=== PATIENT | male | born 1955 | race Caucasian/White ===

== ENCOUNTER 2021-10-11 17:30 | Emergency (ER) | payer MEDICARE ==
[~2021-10-11] VITALS: Ht 182.9 cm; Wt 171.8 kg
[2021-10-11 17:57] LABS: HEMATOCRIT 43.2 % (42.0-52.0); HEMOGLOBIN 14.3 g/dl (13.5-18.0); MEAN CELL VOLUME 92 fl (80.0-100.0); MEAN CORPUSCULAR HEMOGLOBIN 31 pg (27-31); MEAN CORPUSCULAR HGB CONC 33 g/dl (33.0-37.0); MEAN PLATELET VOLUME 10.7 fl (7.4-10.4); PLATELET COUNT 328 K/mm3 (130-400); RED BLOOD COUNT 4.69 M/mm3 (4.20-5.60); REDCELL DISTRIBUTION WIDTH-CV 12.8 % (11.5-14.5)
[2021-10-11 18:00] VITALS: TEMP 98.2
[2021-10-11 18:11] LABS: ALBUMIN 2.8 gm/dL (3.4-4.8); BILIRUBIN,TOTAL 1.6 mg/dL (0.2-1.2); CALCIUM 9.8 mg/dL (8.4-10.2); CREATININE, serum 4.31 mg/dL (0.72-1.25); TOTAL PROTEIN 7.4 gm/dL (6.2-8.1)
[2021-10-11 18:27] LABS: BAND 22 % (0-10); LYMPHOCYTE 2 % (20.0-51.0); METAMYELOCYTE 1 % (0-0); NEUTROPHILS 71 % (42.0-75.2); PLATELET ESTIMATE NORMAL (NORMAL)
[2021-10-11 22:05] VITALS: BP 110/49; PULSE 86
== END 2021-10-11 22:05 | disposition short-term general hospital (02) ==
LOC: COL.ER 17:30
PROVIDERS: Family Medicine
DX: A41.9 Sepsis, unspecified organism (principal); I95.9 Hypotension, unspecified; N17.9 Acute kidney failure, unspecified; K42.0 Umbilical hernia with obstruction, without gangrene; E66.9 Obesity, unspecified; R61 Generalized hyperhidrosis; Z87.891 Personal history of nicotine dependence; Z20.822 Contact with and (suspected) exposure to COVID-19
CPT/HCPCS: J2543; J7030

== ENCOUNTER 2023-06-01 04:41 | Inpatient (IN) | payer MEDICARE ==
[2023-06-01] VITALS (589 sets, daily range): BP systolic 82–161; BP diastolic 42–86; PULSE 63–120; TEMP 97.6–98.5; O2SAT 80–100
[~2023-06-01] VITALS: Ht 182.9 cm; Wt 145.0 kg
[2023-06-01 05:54] LABS: BASO # 0.1 K/mm3 (0.0-0.2); BASO % 0.3 % (0.0-2.0); EOS % 0.1 % (0.0-4.0); GRAN # 15.2 K/mm3 (1.4-6.5); GRAN % 88.4 % (42.2-75.2); HEMOGLOBIN 12.4 g/dl (13.5-18.0); LYMPH # 0.8 K/mm3 (1.2-3.4); LYMPH % 4.7 % (20.0-51.0); MEAN CELL VOLUME 92 fl (80.0-100.0); MEAN CORPUSCULAR HEMOGLOBIN 31 pg (27-31); MEAN CORPUSCULAR HGB CONC 34 g/dl (33.0-37.0); MEAN PLATELET VOLUME 10.7 fl (7.4-10.4); MONO % 5.9 % (1.7-9.3); PLATELET COUNT 380 K/mm3 (130-400); RED BLOOD COUNT 4.02 M/mm3 (4.20-5.60); REDCELL DISTRIBUTION WIDTH-CV 13.2 % (11.5-14.5)
[2023-06-01 06:14] LABS: ALBUMIN 3.6 gm/dL (3.4-4.8); BILIRUBIN,TOTAL 0.4 mg/dL (0.2-1.2); CALCIUM 10.5 mg/dL (8.4-10.2); CREATININE, serum 4.84 mg/dL (0.72-1.25); TOTAL PROTEIN 7.7 gm/dL (6.2-8.1)
[2023-06-01 06:20] LABS: POTASSIUM 2.6 mmol/L (3.5-4.5)
[2023-06-01 06:22] LABS: TROPONIN-I 0.107 ng/mL (0.00-0.033)
--- NOTE | 2023-06-01 15:53 | NUR ---
Chaplain jean for Patient.
--- NOTE | 2023-06-01 16:01 | NUR ---
1145 PT TO ICU FROM PACU S/P PERFORATED DUODENAL ULCER REPAIR. PT ON VENT UPON ARRIVAL, 8.[address] MEASURING 27CM AT TEETH AND OG TUBE IN PLACE MEASURING 45CM AT LIP. BESS CATHETER IN PLACE TO DEPENDENT DRAINAGE. THREE LAP SITES TO ABD GLUED, EDGES WELL APPROXIMATED. SAHIL DRAIN SITE TO R SIDE OF ABD WNL, DRESSING CDI. LARGE DRIED SCABS NOTED TO L CALF AND ALVAR[place]O, NO DRAINAGE PRESENT. 1300 PHONE CALL MADE TO SON TO OBTAIN INTAKE INFO. PER PT'S SON HE DOES NOT KNOW PT'S MEDICAL INFORMATION AND IS UNSURE IF PT HAS ADVANCED DIRECTIVE. SON STATES PT LIVES W/ YOUNGER DAUGHTER AND THAT SHE ALSO DOES NOT KNOW HIS MEDICAL INFORMATION.
[2023-06-01 16:34] LABS: ARTERIAL BLD GAS O2 SATURATION 97.9 % (92-100); ARTERIAL BLOOD GAS BASE EXCESS -4.4 (-2-2); ARTERIAL BLOOD GAS HCO3 19.2 meq/L (22-26); ARTERIAL BLOOD GAS PCO2 29.2 mmHg (35-45); ARTERIAL BLOOD GAS PO2 96.4 mmHg (80-100); ARTERIAL BLOOD GAS pH 7.44 (7.35-7.45)
[2023-06-01 16:35] LABS: ARTERIAL BLD GAS TCO2 CT 20.1
[2023-06-02] VITALS (1143 sets, daily range): BP systolic 82–122; BP diastolic 38–59; PULSE 56–92; TEMP 97.9–99.7; O2SAT 47–100
--- NOTE | 2023-06-02 05:17 | NUR ---
AROUND 0200 AN ATTEMPT TO DECREASE BOTH FENTANYL AND PROPOFOL DOWN BY ONE TITRATION EACH WAS COMPLETED. AFTER THIS TITRATION, PT STARTED TO BECOME AGITATED AND STARTED TO REACH FOR THE ET TUBE, AND FIGHTING THE VENT. AN INCREASE BACK TO THE STARTING RATES WERE DONE, PT CALMED DOWN AND COULD FOLLOW COMMANDS AT THESE RATES. SEDATION VACATION INNAPROPRIATE AT THIS TIME DUE TO THOSE REASONS. VITALS WNL, PLAN OF CARE ONGOING.
[2023-06-02 05:40] LABS: BASO % 0.1 % (0.0-2.0); EOS % 0.2 % (0.0-4.0); GRAN # 10.7 K/mm3 (1.4-6.5); GRAN % 87.1 % (42.2-75.2); HEMOGLOBIN 10.6 g/dl (13.5-18.0); LYMPH # 0.7 K/mm3 (1.2-3.4); LYMPH % 5.6 % (20.0-51.0); MEAN CELL VOLUME 90 fl (80.0-100.0); MEAN CORPUSCULAR HEMOGLOBIN 31 pg (27-31); MEAN CORPUSCULAR HGB CONC 34 g/dl (33.0-37.0); MEAN PLATELET VOLUME 10.2 fl (7.4-10.4); MONO # 0.8 K/mm3 (0.1-0.6); MONO % 6.6 % (1.7-9.3); RED BLOOD COUNT 3.44 M/mm3 (4.20-5.60); REDCELL DISTRIBUTION WIDTH-CV 13.7 % (11.5-14.5)
[2023-06-02 05:47] LABS: HEMATOCRIT 30.9 % (42.0-52.0); PLATELET COUNT 254 K/mm3 (130-400)
[2023-06-02 05:47] LABS: ARTERIAL BLD GAS O2 SATURATION 97.1 % (92-100); ARTERIAL BLOOD GAS BASE EXCESS -3.5 (-2-2); ARTERIAL BLOOD GAS HCO3 20.1 meq/L (22-26); ARTERIAL BLOOD GAS PO2 93.7 mmHg (80-100); ARTERIAL BLOOD GAS pH 7.43 (7.35-7.45)
[2023-06-02 06:07] LABS: CALCIUM 8.7 mg/dL (8.4-10.2); CREATININE, serum 3.05 mg/dL (0.72-1.25); MAGNESIUM 1.6 mg/dL (1.6-2.6)
[2023-06-02 06:09] LABS: POTASSIUM 2.8 mmol/L (3.5-4.5)
--- NOTE | 2023-06-02 09:13 | NUR ---
RECEIVED BEDSIDE REPORT FROM NIGHTSKSFT RNFRANCIS. PATIENT REMAINS INTUBATED AND SEDATED AT THIS TIME. TWO SOFT WRIST RESTRAINTS IN PLACE. BED IN A LOW POSITION. MEDICATIONS, LABS, AND ORDERS REVIEWED AND ACKNOWLEDGED.
--- NOTE | 2023-06-02 09:20 | NUR ---
HEAD TO TOE ASSESSMENT COMPLETED. PATIENT OPENS EYES AND WITHDRAWLS FROM PAINFUL STIMULI. PUPILS ARE EQUAL AND REACTIVE. HEART SOUNDS REGULAR WITH S1 AND S2 NOTED. LUNG SOUNDS ARE DIMINISHED ALL OVER. BOWEL SOUNDS ACTIVE X4. PATIENT HAS SAHIL DRAIN FROM SURGERY PRODUCING SEROSANGUOUS FLUID. BESS IN PLACE. PATIENT REMAINS INTUBATED AND SEDATED WITH [address] PL[address] BED IN A LOW POSITION.
[2023-06-02 15:34] LABS: MAGNESIUM 2.7 mg/dL (1.6-2.6)
--- NOTE | 2023-06-02 17:42 | NUR ---
PATIENT VERY RESTLESS AND PULLING AT RESTRAINTS WITH CURRENT AMOUNT OF SEDATION. SEDATION NOT CUT IN HALF D/T CONCERN PATIENT WILL SELF EXTUBATE
--- NOTE | 2023-06-02 19:45 | NUR ---
Received report from day shift nurse, Ngoc. Pt is intubated and lying in bed. Pt is on levophed, LR, prop, and fent. Pt has an OG that is on LIS at this time. Pt has a multani in place with no kinks. Pt has a SAHIL drain in his abd and some drainage, but the dressing is clean, dry, and intact. Pt's 3 lap sites on the abd are open to air and clean, dry and intact. Pt's vitals are stable at this time.
[2023-06-03] VITALS (803 sets, daily range): BP systolic 100–147; BP diastolic 47–93; PULSE 80–125; TEMP 97.4–100.3; O2SAT 48–100
[2023-06-03 05:55] LABS: BASO # 0.1 K/mm3 (0.0-0.2); BASO % 0.4 % (0.0-2.0); EOS # 0.1 K/mm3 (0.0-0.7); GRAN # 9.5 K/mm3 (1.4-6.5); GRAN % 84.6 % (42.2-75.2); HEMOGLOBIN 10.1 g/dl (13.5-18.0); LYMPH # 0.7 K/mm3 (1.2-3.4); LYMPH % 6.3 % (20.0-51.0); MEAN CELL VOLUME 92 fl (80.0-100.0); MEAN CORPUSCULAR HEMOGLOBIN 31 pg (27-31); MEAN CORPUSCULAR HGB CONC 33 g/dl (33.0-37.0); MEAN PLATELET VOLUME 10.5 fl (7.4-10.4); MONO # 0.8 K/mm3 (0.1-0.6); MONO % 6.8 % (1.7-9.3); PLATELET COUNT 232 K/mm3 (130-400); REDCELL DISTRIBUTION WIDTH-CV 14.1 % (11.5-14.5)
[2023-06-03 06:07] LABS: HEMATOCRIT 30.2 % (42.0-52.0)
[2023-06-03 06:11] LABS: CREATININE, serum 2.17 mg/dL (0.72-1.25); MAGNESIUM 2.2 mg/dL (1.6-2.6); POTASSIUM 3.1 mmol/L (3.5-4.5)
--- NOTE | 2023-06-03 06:39 | NUR ---
Weaning sedation down per day shift nurse verbal order from Dr. Sánchez.
--- NOTE | 2023-06-03 07:30 | NUR ---
Pt had an uneventful night. Pt on levophed most of the night to help keep the BP stable. Leovophed was put on standby at 0548 this morning. Pt on fentanyl and propofol. Pt was hard to wean off at 0500. Pt would not follow commands and was restless in the bed and trying to sit up. Pt was moving their legs reslessly in the bed and moving their bottom in the bed. Pt was stacking their breaths on the vent. The pt's Tital volume would sometimes reach to 1500 range on the vent. Pt's HR started to go to 120's and pt was shaking in the bed. That is why the pt was left on some sedation during shift change this morning. Around 0300 the pt was alarming the vent constantly and his tital volume was getting to 1,100 range so the fentanyl was increased to hopefully help with the pain in the abd from the surgery. Pt had adequate urine output. Pt had 75 ml from the SAHIL drain. The SAHIL dressing was clean, dry and intact. Pt's 3 lap sites are open to air and clean, dry and intact. Pt's OG was on LIS the whole night with some green drainage. Gave report to day shift nurse.
[2023-06-03 09:46] LABS: ARTERIAL BLD GAS O2 SATURATION 96.7 % (92-100); ARTERIAL BLD GAS TCO2 CT 22.9; ARTERIAL BLOOD GAS BASE EXCESS -1.8 (-2-2); ARTERIAL BLOOD GAS HCO3 21.9 meq/L (22-26); ARTERIAL BLOOD GAS PCO2 33.3 mmHg (35-45); ARTERIAL BLOOD GAS PO2 83.4 mmHg (80-100); ARTERIAL BLOOD GAS pH 7.44 (7.35-7.45)
--- NOTE | 2023-06-03 09:55 | NUR ---
Patient extubated at 0955 to 3L OXYMASK. TOLERATED WELL. PATIENT ALERT AND ORIENTED AFTER EXTUBATION. CURRENLTY 98% ON 3L.
[2023-06-03] MEDS ORDERED: LIPITOR 40MG TA40 MG PO (09:59)
[2023-06-03] MEDS ORDERED: PRINZIDE 25 MG-1 TAB PO (09:59)
[2023-06-03] MEDS ORDERED: PLAVIX 75MG TAB75 MG PO (09:59)
[2023-06-03] MEDS ORDERED: TOPROL XL 25MG25 MG PO (10:00)
[2023-06-03] MEDS ORDERED: SYNTHROID0.075 MG/T PO (10:00)
[2023-06-03] MEDS ORDERED: ONE-A-DAY MEN'1 EAC4 PO (10:21)
--- NOTE | 2023-06-03 14:30 | NUR ---
Patient transfered to radiology lab for an UGI swallow study. Nurse accompanied patient and radiology staff. Tolerated well.
--- NOTE | 2023-06-03 17:45 | NUR ---
Patient transfered upstairs via wheelchair. Alert and oriented and in no distress upon transfer. Met receiving RN on the surgical floor.
--- NOTE | 2023-06-03 18:03 | NUR ---
PT UP TO FLOOR AT THIS TIME. VITALS STABLE, A/O X4, LUNGS CLEAR AND DIMINISHED IN LOWER QUADRENTS, RIGHT IJ TRIIPLE LUMAN, 2L NC, NO PAIN, BESS TO DEPENDENT DRAINAGE, FAMILY AT BEDSIDE, WILL CONTINUE TO MONITOR.
--- NOTE | 2023-06-03 19:20 | NUR ---
report received from diana hoang. pt ambulated to bathroom sba. pt weak with ambulation but otherwise steady with gait. pt reports some pain with movement. pt now back in bed. pt running tachycardic with ambulation but asymptomatic. bed alarm on. call light in reach. all needs met at this time.
--- NOTE | 2023-06-03 20:01 | NUR ---
pt glucose reading checks changed from q4h to achs per doctor report.
--- NOTE | 2023-06-03 23:26 | NUR ---
shift assessment complete, see documentation. pt resting in bed with hob raised. pt denies pain. pt tolerating abx well. pt having some confusion and need reorientation. pt orients easily. pt tolerated hs meds well. multani in place and draining urine without issue. bed alarm on. call light in reach. all needs met at this time.
[2023-06-04 03:39] VITALS: BP 139/72; PULSE 97; TEMP 98.2
--- NOTE | 2023-06-04 06:32 | NUR ---
pt very confused this morning. pt knows his name, , where he is and what month but was unaware of the year. pt reoriented and stated that he feels confused. bed alarm on. call light in reach. all needs met at this time.
[2023-06-04 07:35] VITALS: BP 121/56; PULSE 92; TEMP 98.5
--- NOTE | 2023-06-04 08:10 | NUR ---
pt alert and oriented w occasional confusion. pt denies pain. x3 lap sites are cdi. shaggy drain in place w serous yellow drainage, dressing intact. multani to dd w cloudy yellow urine output. BGL 111 not requiring insulin. vss and tele in place. zosyn infusing into right IJ at 25ml/hr. scds to ble. pt tolerating clear liquid diet. INT to right ac patent. pt on 2L nasal cannula. assisted pt to recliner, pt ambulated well. pt denies needs at this time. call light in reach.
--- NOTE | 2023-06-04 09:52 | NUR ---
aircraft worker met with pt to discuss discharge planning. Pt lives with his daughter, Lety [phone] in [place]. He sees Dr. Gaffney [facility]. He is independent with ADLS and reported that if he were to need help dressing, "my daughter would throw a hissy fit." Pt does not use DME, but has a FWW and oxygen during the hospital stay. Pt did not have a DPOA-HC and completed one listing his son, Fantasma. Dustin and SW witnessed SW. Pt provided a copy and originals. Copy in the chart. PT eval pending. Discharge Plan: tbd
--- NOTE | 2023-06-04 10:00 | NUR ---
multani and SAHIL drain discontinued without difficulty. 400cc of yellow urine output and 15cc of bloody output from SAHIL drain. weaned pt off of oxygen, denies feeling SOB. potassium replacement given.
[2023-06-04 11:21] VITALS: BP 131/55; PULSE 87; TEMP 98.3
[2023-06-04 11:26] LABS: BASO # 0.1 K/mm3 (0.0-0.2); BASO % 0.6 % (0.0-2.0); EOS # 0.3 K/mm3 (0.0-0.7); EOS % 3.9 % (0.0-4.0); GRAN # 6.4 K/mm3 (1.4-6.5); GRAN % 78.8 % (42.2-75.2); LYMPH # 0.7 K/mm3 (1.2-3.4); LYMPH % 8.2 % (20.0-51.0); MEAN CELL VOLUME 95 fl (80.0-100.0); MEAN CORPUSCULAR HGB CONC 32 g/dl (33.0-37.0); MEAN PLATELET VOLUME 10.5 fl (7.4-10.4); MONO # 0.6 K/mm3 (0.1-0.6); MONO % 7.3 % (1.7-9.3); PLATELET COUNT 234 K/mm3 (130-400); RED BLOOD COUNT 3.07 M/mm3 (4.20-5.60); REDCELL DISTRIBUTION WIDTH-CV 14.3 % (11.5-14.5)
[2023-06-04 11:27] LABS: HEMATOCRIT 29.3 % (42.0-52.0); HEMOGLOBIN 9.3 g/dl (13.5-18.0); MEAN CORPUSCULAR HEMOGLOBIN 30 pg (27-31)
[2023-06-04 11:43] LABS: CALCIUM 9.3 mg/dL (8.4-10.2); CREATININE, serum 1.7 mg/dL (0.72-1.25); POTASSIUM 3.2 mmol/L (3.5-4.5)
[2023-06-04 15:26] VITALS: BP 115/66; PULSE 97; TEMP 98
--- NOTE | 2023-06-04 19:05 | NUR ---
report received from lulu hoang. pt resting in bed with friend at bedside. pt reports he feels great today. bed alarm on. call light in reach. all needs met at this time.
[2023-06-04 19:55] VITALS: BP 137/73; PULSE 90; TEMP 98.3
--- NOTE | 2023-06-04 21:54 | NUR ---
shift assessment complete, see documentation. pt denies pain. pt reports his back being itchy. offered shower, bed bath, and lotion. pt refused and states he has lotion at home he will use. pt a&o x4 tonight without confusion. pt educated to reposition or call for help to do so. pt tolerated hs meds well. bed alarm on. call light in reach. all needs met at this time.
[2023-06-04 23:37] VITALS: BP 120/73; PULSE 62; TEMP 97.5
--- NOTE | 2023-06-05 02:14 | NUR ---
pt ambulated to bathroom independently with steady gait. pt denies feeling dizzy or sob. pt tachy when ambulating but remains asymptomatic. call light in reach. all needs met at this time.
[2023-06-05 04:20] VITALS: BP 133/69; PULSE 87; TEMP 98.8
[2023-06-05 06:43] LABS: BASO % 0.6 % (0.0-2.0); EOS # 0.4 K/mm3 (0.0-0.7); GRAN % 69.3 % (42.2-75.2); LYMPH # 0.9 K/mm3 (1.2-3.4); LYMPH % 12.7 % (20.0-51.0); MEAN CELL VOLUME 92 fl (80.0-100.0); MEAN CORPUSCULAR HGB CONC 33 g/dl (33.0-37.0); MEAN PLATELET VOLUME 10.4 fl (7.4-10.4); MONO # 0.8 K/mm3 (0.1-0.6); PLATELET COUNT 227 K/mm3 (130-400); RED BLOOD COUNT 3.06 M/mm3 (4.20-5.60)
[2023-06-05 06:48] LABS: HEMATOCRIT 28.2 % (42.0-52.0); HEMOGLOBIN 9.3 g/dl (13.5-18.0); MEAN CORPUSCULAR HEMOGLOBIN 30 pg (27-31)
[2023-06-05 07:01] LABS: CALCIUM 9.4 mg/dL (8.4-10.2); CREATININE, serum 1.53 mg/dL (0.72-1.25); POTASSIUM 3.1 mmol/L (3.5-4.5)
[2023-06-05 07:35] VITALS: BP 141/61; PULSE 79; TEMP 98.1
--- NOTE | 2023-06-05 08:15 | NUR ---
pt a&ox4 resting in bed, assisted to recliner for breakfast. gait steady. vss and tele in place. BGL 103 this morning. x3 lap sites are cdi. SAHIL drain dressing is cdi. potassium 3.1 and replaced per protocol. right ac and RIJ patent. fall precautions in place. call light in reach. no needs at this time.
[2023-06-05] MEDS ORDERED: AMOXICILLIN 8751 TAB PO (08:49)
[2023-06-05] MEDS ORDERED: PROTONIX 40MG T40 MG PO (08:53)
--- NOTE | 2023-06-05 11:08 | NUR ---
animal control licensing worker met with Dr. Sánchez during the interdisciplinary team rounding. Dr. Sánchez expressed patient may benefit from outpatient PT. animal control licensing worker was notified by Mary with physical therapy that patient had used a bariatric walker with their session and patient stated it would be beneficial for him at home. HUSSEIN contacted [facility] whom expressed they do not have a bariatric walker at this time. They suggested [facility] or [facility]. SW contacted [facility] whom expressed they have a bariatric walker that would be $230 to purchase. [facility] expressed insurance would not cover the cost of this. SW contacted [facility] whom expressed they do not have one available. SW contacted [facility] whom expressed they have one available, it is $350 and patient could submit to his insurance for reimbursement. SW contacted the [facility] in [place] whom expressed they do not currently have a bariatric walker but they suggested [facility]. SW contacted [facility] whom expressed all of their bariatric walkers are being borrowed at this time. HUSSEIN met with patient and presented the options for the two facilities that have a walker available. Patient expressed he is on SSI and is unable to afford $230 at this time. Patient expressed he did not want a walker. HUSSEIN contacted Mary with PT and notified her of the above information and Mary expressed she would see if he would be stable with a cane as patient previously expressed he was using his IV stand to stabilize himself and he told her the walker may be helpful. SW was notified patient walked in the hallway without any DME devices with physical therapy. PT expressed he could return home without DME if he chose but expressed a cane may be beneficial if he wanted. HUSSEIN met with patient and notified him PT expressed he could use a cane if he wanted. Patient expressed he may have one that he can borrow. SW discussed home health or outpatient PT services. Patient declined both. SW expressed if he gets home and decides he would like either services, he could get an order from his PCP. Patient understood. Discharge Plan: Home
--- NOTE | 2023-06-05 11:30 | NUR ---
right AC and IJ discontiued.
[2023-06-05 11:46] VITALS: BP 150/65; PULSE 59; TEMP 98
--- NOTE | 2023-06-05 12:00 | NUR ---
discharge instructions given to pt, all questions answered.
--- NOTE | 2023-06-05 13:50 | NUR ---
pt escorted to personal vehicle
== END 2023-06-05 13:50 | disposition home or self-care (01) | DRG 853 ==
LOC: COL.ER 04:41 → ICU 11:31 → SURG 06-03 18:00
PROVIDERS: Personal Emergency Response Attendant; Physician Assistant; Surgery; ADMIT Internal Medicine
PROC: 05HM33Z Insertion of Infusion Device into Right Internal Jugular Vein, Percutaneous Approach (ICD-10-PCS; 2023-06-01)
PROC: 5A1945Z Respiratory Ventilation, 24-96 Consecutive Hours (ICD-10-PCS; 2023-06-01)
PROC: 0BH17EZ Insertion of Endotracheal Airway into Trachea, Via Natural or Artificial Opening (ICD-10-PCS; 2023-06-01)
PROC: 0DU947Z Supplement Duodenum with Autologous Tissue Substitute, Percutaneous Endoscopic Approach (ICD-10-PCS; principal; 2023-06-01 09:30)
PROC: 8E0W4CZ Robotic Assisted Procedure of Trunk Region, Percutaneous Endoscopic Approach (ICD-10-PCS; 2023-06-01 09:30)
DX: A41.9 Sepsis, unspecified organism (principal); K26.5 Chronic or unspecified duodenal ulcer with perforation; N18.4 Chronic kidney disease, stage 4 (severe); R65.20 Severe sepsis without septic shock; E66.01 Morbid (severe) obesity due to excess calories; Z68.32 Body mass index [BMI] 32.0-32.9, adult; E87.6 Hypokalemia; R73.9 Hyperglycemia, unspecified; I25.10 Atherosclerotic heart disease of native coronary artery without angina pectoris; I12.9 Hypertensive chronic kidney disease with stage 1 through stage 4 chronic kidney disease, or unspecified chronic kidney disease
CPT/HCPCS: A4314; C1751; C9113; J0330; J1644; J2250; J2270; J2371; J2543; J2704; J3010; J3370; J3475; J3480; J7030; J7050; J7060; J7120